=== PATIENT | female | born 1990 | race Caucasian/White ===

== ENCOUNTER 2017-04-16 19:09 | Emergency (ER) | payer OTHER ==
[2017-04-16 19:23] VITALS: BP 109/71; PULSE 77; TEMP 98.4; BMI 29.2
[2017-04-16 20:19] LABS: URINE APPEARANCE CLEAR; URINE BILIRUBIN NEGATIVE (NEGATIVE); URINE BLOOD NEGATIVE (NEGATIVE); URINE COLOR YELLOW; URINE GLUCOSE (UA) NEGATIVE (NEGATIVE); URINE KETONE NEGATIVE (NEGATIVE); URINE NITRITE NEGATIVE (NEGATIVE); URINE UROBILINOGEN NEGATIVE E.U./dl (0.2-1.0)
[2017-04-16 20:21] LABS: URINE LEUK ESTERASE 1+ (NEGATIVE); URINE PROTEIN 1+ (NEGATIVE)
[2017-04-16 20:38] LABS: URINE BACTERIA RARE /hpf (NONE SEEN); URINE HYALINE CAST 1 /lpf; URINE MUCUS RARE; URINE RBC 1 /hpf (0-3); URINE WBC 8 /hpf (3-5)
--- NOTE | 2017-04-16 20:55 | PDOC ---
History of Present Illness - General Chief Complaint: Edema Stated Complaint: SWOLLEN RT FOOT Time Seen by Provider: 04/16/17 19:37 History Source: Patient Exam Limitations: No Limitations - History of Present Illness Initial Comments: 04/16/17 20:50 26yo Female patient with no significant past medical history presents to ED c/o right foot/ankle swelling. Patient reports she tripped over a metal bar and fell three weeks ago. She states foot was tender but not swollen. Patient states having difficulty walking 2 days ago, but felt it would go away. She states yesterday experiencing foot swelling that has since worsened today. Patient also points out multiple insect bites to bilateral feet. OTC: Ibuprofen taken with no relief of symptoms. LNMP: April 03. Occurred: reports: last week Severity: Yes: moderate Lower Extremity Pain Location: right: foot Method of Injury: Yes: fell Modifying Factors: improves with: pain medication (Ibuprofen) Lower Ext. Injury Location - Specific Injury Location Ankle: right bone tenderness, right soft tissue tenderness, right limited range of motion, right pain, right swelling, left normal inspection, left normal range of motion, left non-tender, bilateral no evidence of injury Foot: right foot soft tissue tenderness, right foot bone tenderness, right foot limited range of motion, right foot pain, right foot swelling, left foot normal inspection, left foot normal range of motion, left foot non-tender, bilateral foot no evidence of injury Extremity Pain Location - Extremity Pain Location Extremity Pain Locations: right: foot Past History - Travel Traveled outside of the country in the last 30 days: No Close contact w/someone who was outside of country & ill: No - Past Medical History Allergies/Adverse Reactions: Allergies Allergy/AdvReac Type Severity Reaction Status Date / Time No Known Allergies Allergy Verified 04/16/17 19:20 Home Medications: Ambulatory Orders Ibuprofen 600 mg PO Q6H PRN #20 tablet 04/16/17 Ibuprofen [Advil -] 400 mg PO TID PRN 04/16/17 Tramadol HCl 50 mg PO Q8H PRN #15 tablet MDD 3 tabs 04/16/17 - Immunization History Immunization Up to Date: Yes - Psycho/Social/Smoking Cessation Hx Anxiety: No Suicidal Ideation: No Smoking History: Never smoked Hx Alcohol Use: Yes (SOCIAL) Drug/Substance Use Hx: No Substance Use Type: None Review of Systems - Review of Systems Able to Perform ROS?: Yes Is the patient limited Vietnamese proficient: No Musculoskeletal: Yes: Joint Pain, Joint Swelling, Other (Foot Pain Rt.) All Other Systems: Reviewed and Negative *Physical Exam - Vital Signs Last Vital Signs Temp Pulse Resp BP Pulse Ox 98.4 F 77 16 109/71 97 04/16/17 19:22 04/16/17 19:22 04/16/17 19:22 04/16/17 19:22 04/16/17 19:22 - Physical Exam General Appearance: Yes: Nourished, Appropriately Dressed. No: Apparent Distress, Mild Distress, Moderate Distress, Severe Distress Neck: positive: Trachea midline, Normal Thyroid, Supple. negative: Rigid, Stridor, Lymphadenopathy (R), Lymphadenopathy (L) Respiratory/Chest: positive: Lungs Clear, Normal Breath Sounds. negative: Chest Tender, Respiratory Distress, Accessory Muscle Use, Labored Respiration, Rapid RR Cardiovascular: positive: Regular Rhythm, Regular Rate Musculoskeletal: positive: Normal Inspection. negative: CVA Tenderness, Decreased Range of Motion, Vertebral Tenderness Extremity: positive: Normal Capillary Refill, Normal Inspection, Tender (Rt foot /ankle), Pedal Edema, Swelling. negative: Normal Range of Motion (Rt Ankle/Foot ), Calf Tenderness, Erythema, Inflammation Integumentary: positive: Normal Color, Dry, Warm Neurologic: positive: industrial maintenance mechanic II-XII NML intact, Fully Oriented, Alert, Normal Mood/ Affect, Normal Response, Motor Strength 5/5 ED Treatment Course - ADDITIONAL ORDERS Additional order review: Laboratory Results 04/16/17 20:05 Urine Color Yellow Urine Appearance Clear Urine pH 5.0 Urine Protein 1+ H Urine Glucose (UA) Negative Urine Ketones Negative Urine Blood Negative Urine Nitrite Negative Urine Bilirubin Negative Urine Urobilinogen Negative Ur Leukocyte Esterase 1+ H Urine RBC 1 Urine WBC 8 Ur Epithelial Cells Rare Urine Bacteria Rare Hyaline Casts 1 Urine Mucus Rare Urine HCG, Qual Negative - RADIOLOGY Radiology Studies Ordered: Category Date Time Status ANKLE & FOOT-RIGHT* [RAD] Stat Radiology 04/16/17 19:45 Taken *DC/Admit/Observation/Transfer Diagnosis at time of Disposition: Moderate right ankle sprain Qualifiers: Encounter type: initial encounter Qualified Code(s): S93.401A - Sprain of unspecified ligament of right ankle, initial encounter - Discharge Dispostion Disposition: HOME Condition at time of disposition: Stable Admit: No - Prescriptions Prescriptions: Ibuprofen 600 mg PO Q6H PRN #20 tablet PRN Reason: Mild Pain Tramadol HCl 50 mg PO Q8H PRN #15 tablet MDD 3 tabs PRN Reason: Moderate to Severe pain - Referrals Referrals: Manisha Marrero MD [Primary Care Provider] - Jon Valdes MD [Staff Physician] - - Patient Instructions Printed Discharge Instructions: DI for Ankle Sprain Additional Instructions: FOLLOW UP WITH DR VALDES (ORTHOPEDIST) REGARDING TODAY'S VISIT. CALL TO SCHEDULE APPOINTMENT IN 1 WEEK. TAKE MEDICATIONS PRESCRIBED. DO NOT DRIVE, DRINK ALCOHOL, OR OPERATE HEAVY MACHINERY WHILE TAKING TRAMADOL. KEEP LEG ELEVATED WHEN RESTING. MINIMAL WEIGHT BEARING CRUTCHES USE. APPLY COLD COMPRESS TO AFFECTED AREA EVERY 3 HOURS ON AND OFF FOR 10 MINS. STOP USING UNNECESSARY SALT ADDED TO YOUR FOOD. RETURN IF SYMPTOMS WORSEN OR ANY CONCERNS FOR FURTHER EVALUATION. Print Language: ROMANSH
[2017-04-16] MEDS ORDERED: IBUPROFEN 600 MG TABLET (FP) PO ONE ×2 (21:21→21:27)
== END 2017-04-16 21:32 | disposition home or self-care (01) ==
LOC: JER 19:09
PROC: 2W3QX1Z Immobilization of Right Lower Leg using Splint (ICD-10-PCS; principal; 2017-04-16)
DX: S93.401A Sprain of unspecified ligament of right ankle, initial encounter (principal); W01.0XXA Fall on same level from slipping, tripping and stumbling without subsequent striking against object, initial encounter; Y93.01 Activity, walking, marching and hiking; Y92.9 Unspecified place or not applicable
CPT/HCPCS: 29515; 73610-TC-RT; 73630-TC-RT; 81003; 81015; 84703; 99282-25

== ENCOUNTER 2022-11-27 11:28 | Emergency (ER) | payer OTHER ==
[2022-11-27 11:37] VITALS: BP 129/80; PULSE 80; RESP 18; TEMP 98; BMI 38.9
[2022-11-27] MEDS ORDERED: ACETAMINOPHEN 500 MG TABLET (FP) PO ONE (12:19)
[2022-11-27] MEDS ORDERED: ACETAMINOPHEN 500 MG TABLET (FP) ONE (12:21)
== END 2022-11-27 15:21 | disposition short-term general hospital (02) ==
LOC: JERFT 11:28 → JER 11:28 → JERFT 15:21
DX: H21.02 Hyphema, left eye (principal); H02.846 Edema of left eye, unspecified eyelid; V43.52XA Car driver injured in collision with other type car in traffic accident, initial encounter
CPT/HCPCS: 70450-TC; 70486-TC; 71046-TC-FY; 99285-25

== ENCOUNTER 2023-10-31 04:39 | Emergency (ER) | payer OTHER ==
[2023-10-31 04:53] VITALS: BP 131/87; PULSE 101; RESP 18; TEMP 98.6; BMI 40.7
[2023-10-31] MEDS ORDERED: IBUPROFEN 600 MG TABLET (FP) PO ONE ×2 (05:20→05:34)
[2023-10-31] MEDS ORDERED: AMOXICILLIN 500 MG CAPSULE (FP) PO ONE ×2 (05:36→06:41)
[2023-10-31] MEDS ORDERED: AMOXICILLIN 500 MG CAPSULE (FP) ONE (06:41)
== END 2023-10-31 06:56 | disposition home or self-care (01) ==
LOC: JER 04:39
DX: H92.02 Otalgia, left ear (principal); H66.92 Otitis media, unspecified, left ear; Z20.822 Contact with and (suspected) exposure to COVID-19
CPT/HCPCS: 0241U-QW; 87651; 99283-25

== ENCOUNTER 2024-02-24 22:34 | Emergency (ER) | payer OTHER ==
[2024-02-24 22:48] VITALS: BP 140/90; PULSE 92; RESP 18; TEMP 98.2; BMI 40.9
[2024-02-24] MEDS ORDERED: ACETAMINOPHEN 500 MG TABLET (FP) ONE (23:08)
[2024-02-24] MEDS: ACETAMINOPHEN 500 MG TABLET (FP) PO ONE (23:10)
== END 2024-02-25 00:07 | disposition home or self-care (01) ==
LOC: JER 22:34
DX: R51.9 Headache, unspecified (principal); M25.512 Pain in left shoulder; X50.1XXA Overexertion from prolonged static or awkward postures, initial encounter
CPT/HCPCS: 73030-TC-LT-FY; 99283-25

== ENCOUNTER 2024-03-13 02:22 | Emergency (ER) | payer SELFPAY ==
[2024-03-13 02:26] VITALS: BP 144/91; PULSE 115; RESP 28; TEMP 98.3; BMI 40.7
[2024-03-13 03:05] LABS: BASO % 0.6 % (0-2.0); EOS % 0.8 % (0-4.5); HEMATOCRIT 37.5 % (32.4-45.2); HEMOGLOBIN 12.8 GM/dL (10.7-15.3); LYMPH % 21.8 % (8-40); MCH 30.7 pg (25.7-33.7); MCHC 34.1 g/dl (32.0-36.0); MEAN CELL VOLUME 90.1 fl (80-96); MEAN PLT VOLUME 8.8 fl (7.5-11.1); NEUT % 68.8 % (42.8-82.8); PLATELET COUNT 231 10^3/uL (134-434); RBC 4.16 M/mm3 (3.60-5.2); RDW 14.8 % (11.6-15.6); WHITE BLOOD COUNT 9.2 K/mm3 (4.0-10.0)
[2024-03-13] MEDS ORDERED: ACETAMINOPHEN INJECTION 100 ML IVPB ONE (03:15)
[2024-03-13 03:24] LABS: POTASSIUM 3.9 mmol/L (3.5-5.1)
[2024-03-13 03:26] LABS: CALCIUM 9.2 mg/dL (8.5-10.1)
[2024-03-13 03:27] LABS: ALBUMIN 3.7 g/dl (3.4-5.0); BLOOD UREA NITROGEN 12.3 mg/dL (7-18); MAGNESIUM 1.8 mg/dL (1.8-2.4)
[2024-03-13 03:31] LABS: BILIRUBIN,TOTAL 0.4 mg/dL (0.2-1); TOT PROT 7.4 g/dl (6.4-8.2)
[2024-03-13] MEDS: ACETAMINOPHEN 1000 MG/100 ML BAG IVPB ONE (03:44)
[2024-03-13] MEDS: LACTATED RINGERS SOLUTION 1000 ML INFUS.BAG IV ONE (03:44)
== END 2024-03-13 05:22 | disposition home or self-care (01) ==
LOC: JER 02:22
PROC: 3E030NZ Introduction of Analgesics, Hypnotics, Sedatives into Peripheral Vein, Open Approach (ICD-10-PCS; principal; 2024-03-13)
DX: R00.2 Palpitations (principal); R07.81 Pleurodynia; R06.02 Shortness of breath
CPT/HCPCS: 36415; 80053; 83690; 83735; 84439; 84443; 84484; 85025; 85379; 93005; 93010; 99284-25; J0131